=== PATIENT | male | born 1985 | race Caucasian/White ===

== ENCOUNTER 2019-01-14 20:56 | Emergency (ER) | payer OTHER ==
[2019-01-14 21:01] VITALS: BP 138/86; PULSE 70; TEMP 97.9; BMI 23.3
--- NOTE | 2019-01-14 21:01 | PDOC ---
Rapid Medical Evaluation Time Seen by Provider: 01/14/19 21:00 Medical Evaluation: 01/14/19 21:00 I performed a brief in-person evaluation of this patient. Chief complaint: Cough x 1.5 wks productive of yellow sputum, some streaks of blood in morning Pertinent physical exam findings: Clear lungs, RRR, S1/S2. I have ordered the following: CXR Patient will proceed to the ED for further evaluation. Discharge Disposition - Diagnosis Cough - Referrals - Patient Instructions - Post Discharge Activity
--- NOTE | 2019-01-14 22:00 | PDOC ---
History of Present Illness - General Chief Complaint: Respiratory Stated Complaint: COUGHING Time Seen by Provider: 01/14/19 21:00 History Source: Patient Exam Limitations: No Limitations - History of Present Illness Initial Comments: 01/14/19 21:54 HISTORY OF PRESENT ILLNESS: Supple 33-year-old male denies medical history presents emergency department for evaluation of cough for approximately 10 days. Patient reports dry cough which seldom produces a small amount of yellow and blood-tinged sputum. He reports when he lays down at night the cough is worse and in the morning when he wakes up is extended periods of coughing. 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 He denies any fevers, chills, chest pain, abdominal pain, nausea, vomiting. Patient does not take any medications. No recent travel or sick contacts. PAST MEDICAL HISTORY: Denies past medical history SURGICAL HISTORY: Denies ALLERGIES: No known drug allergies REVIEW OF SYSTEMS General/Constitutional: Denies fever or chills. Denies weakness, weight change. HEENT: Denies change in vision. Denies ear pain or discharge. Denies sore throat. Cardiovascular: Denies chest pain or shortness of breath. Respiratory: see HPI Gastrointestinal: Denies nausea, vomiting, diarrhea or constipation. Denies rectal bleeding. Genitourinary: Denies dysuria, frequency, or change in urination. Musculoskeletal: Denies joint or muscle swelling or pain. Denies neck or back pain. Skin and breasts: Denies rash or easy bruising. Neurologic: Denies headache, vertigo, loss of consciousness, or loss of sensation. Psychiatric: Denies depression or anxiety. Endocrine: Denies increased thirst. Denies abnormal weight change. Hematologic/Lymphatic: Denies anemia, easy bleeding, or history of blood clots. Allergic/Immunologic: Denies hives or skin allergy. Denies latex allergy. PHYSICAL EXAM General Appearance: Well-appearing, appropriately dressed. No apparent distress , no intoxication. HEENT: EOMI, PERRLA, normal ENT inspection, normal voice, TMs normal, pharynx normal. No conjunctival pallor. No photophobia, scleral icterus. Neck: Supple. Trachea midline. No tenderness, rigidity, carotid bruit, stridor , lymphadenopathy, or thyromegaly. Respiratory/Chest: Lungs CTAB. No shortness of breath, chest tenderness, respiratory distress, accessory muscle use. No crackles, rales, rhonchi, stridor , wheezing, dullness Cardiovascular: RRR. S1, S2. No JVD, murmur, bradycardia, tachycardia. Vascular Pulses: Dorsalis-Pedis (R): 2+, Dorsalis-Pedis (L): 2+ Gastrointestinal/Abdominal: Normal bowel sounds. Abdomen soft, non-distended. No tenderness or rebound tenderness. No organomegaly, pulsatile mass, guarding, hernia, hepatomegaly, splenomegaly. Lymphatic: No adenopathy, tenderness. Musculoskeletal/Extremities: Normal inspection. FROM of all extremities, normal capillary refill. Pelvis Stable. No CVA tenderness. No tenderness to extremities, pedal edema, swelling, erythema or deformity. Integumentary: Appropriate color, dry, warm. No cyanosis, erythema, jaundice or rash Neurologic: cuff slitter II-XII intact. Fully oriented, alert. Appropriate mood/affect. Motor strength 5/5. No appreciable EOM palsy, facial droop or sensory deficit. 01/14/19 22:02 Past History - Past Medical History Allergies/Adverse Reactions: Allergies Allergy/AdvReac Type Severity Reaction Status Date / Time No Known Allergies Allergy Verified 01/14/19 21:01 Home Medications: Ambulatory Orders Benzonatate [Tessalon Pearls -] 200 mg PO TID #42 cap 01/14/19 COPD: No - Suicide/Smoking/Psychosocial Hx Smoking History: Never smoked *Physical Exam - Vital Signs Last Vital Signs Temp Pulse Resp BP Pulse Ox 97.9 F 70 18 138/86 98 01/14/19 20:59 01/14/19 20:59 01/14/19 20:59 01/14/19 20:59 01/14/19 20:59 Moderate Sedation - Procedure Monitoring Vital Signs: Procedure Monitoring Vital Signs Temperature 97.9 F 01/14/19 20:59 Pulse Rate 70 01/14/19 20:59 Respiratory Rate 18 01/14/19 20:59 Blood Pressure 138/86 01/14/19 20:59 O2 Sat by Pulse Oximetry (%) 98 01/14/19 20:59 Medical Decision Making - Medical Decision Making 01/14/19 21:55 A/P: 33-year-old male with cough for 10 days Lungs clear to auscultation bilaterally Chest x-ray as read by me angles clear. No focal afterwards consolidations noted. Cardiac silhouette is within normal limits. Normal chest radiograph. Discharge the patient home with instructions for supportive treatment and a prescription for Tessalon Perles. *DC/Admit/Observation/Transfer Diagnosis at time of Disposition: Cough - Discharge Dispostion Disposition: HOME Condition at time of disposition: Stable Decision to Admit order: No - Prescriptions Prescriptions: Benzonatate [Tessalon Pearls -] 200 mg PO TID #42 cap - Referrals - Patient Instructions Additional Instructions: Rest, drink lots of fluids: Teas, water, soups, Pedialyte Steamy showers/seem to face break up mucus Avoid contact with others until cough resolved Lots of handwashing and good hygiene Continue [id number] medications for symptomatic relief Tylenol or Motrin for fever and pain Tessalon Perles as needed for cough Followup with private physician in one to 2 days as needed Return to emergency department for worsened symptoms, fevers, dehydration - Post Discharge Activity
== END 2019-01-14 22:03 | disposition home or self-care (01) ==
LOC: JERFT 20:56
DX: R05 Cough (principal)
CPT/HCPCS: 71046-TC-FY; 99281-25